=== PATIENT | male | born 1950 | race Caucasian/White ===

== ENCOUNTER 2016-03-08 18:59 | Emergency (ER) | payer MEDICARE, MEDICAID ==
[~2016-03-08] VITALS: Ht 167.6 cm; Wt 70.3 kg
[2016-03-08 19:18] VITALS: BP 128/62
--- NOTE | 2016-03-08 20:10 | Emergency Room Report ---
History of Present Illness General Chief Complaint: Skin Rash/Abscess Source: Patient (Georgina Mejia) Present Illness HPI 65 YO Presents to the ED c/o itching rash x over 2 weeks. Pt. denies recent travel. pt. states he had meningitis 6 months ago. Pt states rash began on left arm and spread to the axilla and abdomen in addition to up the right arm. pt. denies lower body involvement. Pt states itching is the most appreciable symptom. denies new medications , lotions, or detergents. pt. denies household members with similar symptoms by does report rash began shortly after leaving [facility] facility. Pt. also reports continued Lower extremity edema. Patient was evaluated at [facility] 20 days ago and had ultrasound performed which was negative however patient states he continues to have intermittent swelling of the lower extremities. Patient states he is primarily wheelchair-bound and does not ambulate regularly ever since he had meningitis. Patient states swelling is worse at the end of the day it and usually he is asymptomatic in the mornings upon awakening. Denies pain, erythema or calf aches. Pt denies N/V /F/C , neck stiffness, leg pain, claudication. (Georgina Mejia) Allergies: Coded Allergies: No Known Allergies (Unverified , 03/08/16) Patient History Past Medical History: see triage record Past Surgical History: none Pertinent Family History: none Immunizations: UTD Reviewed Nursing Documentation: PMH: Agreed, PSxH: Agreed (Georgina Mejia) Nursing Documentation-PMH Past Medical History: No Stated History (Georgina Mejia) Review of Systems All Other Systems: negative except mentioned in HPI (Georgina Mejia) Physical Exam Vital Signs Date Time Temp Pulse Resp B/P Pulse Ox O2 Delivery O2 Flow Rate FiO2 03/08/16 19:14 98.4 90 14 113/76 99 Room Air Sp02 EP Interpretation: reviewed, normal General Appearance: no apparent distress, alert, GCS 15, non-toxic Head: normocephalic, atraumatic Eyes: bilateral eye PERRL, bilateral eye normal inspection ENT: hearing grossly normal, normal pharynx, no angioedema, normal voice Neck: full range of motion, no meningismus, no bony tend, supple/symm/no masses Respiratory: chest non-tender, lungs clear, normal breath sounds, no rhonchi, no respiratory distress, no retraction, no accessory muscle use, no wheezing, speaking full sentences Cardiovascular #1: regular rate, rhythm, edema - bilateral LE 1+ non-pitting edema, no erythema, no pain, negative solange's Cardiovascular #2: 2+ radial (R), 2+ radial (L), 1+ dorsalis pedis (R), 1+ dorsalis pedis (L) Gastrointestinal: non tender, soft, no guarding, no rebound, other - rash: linear vesicular lesions, that do cross the midline, significant excoriations noted. Rectal: deferred Genitourinary: normal inspection, no CVA tenderness Musculoskeletal: back normal, gait/station normal, normal range of motion, non- tender, no calf tenderness Neurologic: alert, oriented x3, responsive, motor strength/tone normal, sensory intact, speech normal Psychiatric: judgement/insight normal, memory normal, mood/affect normal, no suicidal/homicidal ideation Skin: normal color, no rash, warm/dry, well hydrated, rash - rash: linear vesicular lesions, that do cross the midline, significant excoriations noted. one lesionis open and scabbed very mild crusting noted, no increased temperature to palpation. multiple linear arrangements on the torso mostly under the axilla, and the wrists going up the arms, few lesions noted dorsally on the hands between the finger webs, no palmar involvement, lesions are mainly on the left side, most suspicious for scabies. Lymphatic: no adenopathy (Georgina Mejia P.A.) Medical Decision Making PA Attestation Dr. reyes is my supervising Physician whom patient management has been discussed with. (Georgina Mejia P.A.) Medicare Attestation The history of Rafa Goodrich has been reviewed and management options for him have been examined and discussed by Juancarlos Smith. I have personally examined and interviewed the patient. (JUANCARLOS SMITH M.D.) Diagnostic Impression: Primary Impression: Scabies Additional Impression: Rash and other nonspecific skin eruption ER Course Pt. presents to the ED c/o rash on UE's and torso x over 2 weeks, in addition to continued intermittent lower extremity edema worse at the end of the day and asymptomatic in the mornings. Ddx considered but are not limited to cellulitis, scabies, shingles, varicella, dermatitis, urticaria, eczema, tinea, DVT, PAD, dependent edema. Vital signs: are WNL, pt. is afebrile H&PE are most consistent with possible scabies infestation due to linear appearance of lesions on torso, axilla and arm, as well as dependent edema. HPI and PE do not suggest high suspicion of DVT. especially since pt. was recently evaluated and had negative study. pt. provided US report from [facility]. ORDERS: none required at this time, the diagnosis is clinical ED INTERVENTIONS: -50mg Benadryl -40mg Prednisone -bacitracin applied to lesion on left side of torso. -d/w pt to follow up with a PCP who may place him on diuretic medications that he would need to be titrated to him personally. DISCHARGE: At this time pt. is stable for d/c to home. Will provide printed patient care instructions, and any necessary prescriptions. Care plan and follow up instructions have been discussed with the patient prior to discharge. (Georgina Mejia) Last Vital Signs Date Time Temp Pulse Resp B/P Pulse Ox O2 Delivery O2 Flow Rate FiO2 03/08/16 19:18 98.1 68 14 128/62 99 Room Air (Georgina Mejia) Disposition: HOME, SELF-CARE Condition: Stable Scripts Bacitracin Zinc/Polymyx B Sulf (HM DOUBLE ANTIBIOTIC OINTMENT) 28.4 Gm Oint...g. 1 APPLIC TP BID, #28.4 GM Prov: Georgina Mejia 03/08/16 Prednisone* (PREDNISONE*) 20 Mg Tablet 40 MG ORAL DAILY for 5 Days, TAB Prov: Georgina Mejia 03/08/16 Diphenhydramine Hcl* (BENADRYL*) 25 Mg Capsule 25 MG ORAL Q6H Y for Itching, #30 CAP take 1 or 2 capsules every 6 hours for itching as needed. Prov: Georgina Mejia 03/08/16 Permethrin* (ELIMITE*) 60 Gm Cream..g. 1 APPLIC TOPIC ONCE, #60 GM 2 Refills Apply cream from head to toe; leave on for 8-14 hours before washing off with water; may reapply in 1 week if live mites appear. Prov: Georgina Mejia 03/08/16 Referrals: NON PHYSICIAN (PCP) Patient Instructions: Edema, Pruritus, Scabies, Pediatric Additional Instructions: Take medications as directed. Follow up with PCP in 3-5 days Return sooner to ED if new symptoms occur, or current symptoms become worse. Do not drink alcohol, drive, or operate heavy machinery while taking benadryl as this may cause drowsiness. Georgina Mejia Mar 08, 2016 20:10 JUANCARLOS SMITH M.D. Mar 15, 2016 06:47
[2016-03-08] MEDS ORDERED: PERMETHRIN60 GM TOPIC (20:12)
[2016-03-08] MEDS ORDERED: PREDNISONE20 MG ORAL (20:12)
[2016-03-08] MEDS ORDERED: BENADRYL25 MG ORAL (20:12)
[2016-03-08] MEDS ORDERED: HM DOUBLE ANT28.4 G1 TP (20:13)
[2016-03-08] MEDS ORDERED: PredniSONE 20mg tab ORAL ONE (20:15)
[2016-03-08] MEDS ORDERED: Bacitracin Oint UD TOPIC ONE (20:15)
[2016-03-08 20:32] VITALS: BP 122/60
== END 2016-03-08 20:32 | disposition home or self-care (01) ==
LOC: EMR 19:23
DX: B86 Scabies (principal)
CPT/HCPCS: 99282

== ENCOUNTER 2017-07-21 15:05 | Inpatient (IN) | payer MEDICARE, OTHER ==
[~2017-07-21] VITALS: Ht 167.6 cm; Wt 77.1 kg
[~2017-07-21 15:05] MED LIST: BENADRYL25 MG ORAL; HM DOUBLE ANT28.4 G1 TP; PERMETHRIN60 GM TOPIC; PREDNISONE20 MG ORAL
[2017-07-21] MEDS ORDERED: NKM (15:12)
[2017-07-21 15:20] VITALS: BP 106/64
[2017-07-21 16:24] LABS: ANION GAP 7 mmol/L (5-15); BLOOD UREA NITROGEN 15 mg/dL (7-18); CALCIUM 8.7 MG/DL (8.5-10.1); CARBON DIOXIDE 28 MMOL/L (21-32); CHLORIDE 103 MMOL/L (98-107); CREATININE 0.6 MG/DL (0.55-1.30); SODIUM 138 MMOL/L (136-145)
[2017-07-21 16:37] LABS: ALANINE AMINOTRANSFERASE 29 U/L (12-78); ALBUMIN 2.9 G/DL (3.4-5.0); ALBUMIN/GLOBULIN RATIO 0.7 (1.0-2.7); ALKALINE PHOSPHATASE 53 U/L (46-116); ASPARTATE AMINO TRANSFERASE 20 U/L (15-37); BILIRUBIN,TOTAL 0.2 MG/DL (0.2-1.0)
--- NOTE | 2017-07-21 16:37 | Emergency Room Report ---
History of Present Illness General Chief Complaint: Generalized Weakness Source: Patient Present Illness HPI Patient is a 66-year-old male who presented after increased generalized weakness. The patient had recent interventional radiology artery coiling of a duodenal lesion less than 2 weeks ago. Patient denied recent fever. He reported having a decreased exercise tolerance as well as generalized weakness. Patient had recent blood draw with hemoglobin greater than 7 prior to angiographic procedure. The patient denied any hematemesis or grossly bloody stools. He states he's had previous upper GI as well as the colonoscopy. Patient was noted to have previous history of colon cancer and had previous surgery for colon resection with primary anastomosis. Allergies: Coded Allergies: No Known Allergies (Unverified , 03/08/16) Patient History Past Medical History: see triage record Reviewed Nursing Documentation: PMH: Agreed; PSxH: Agreed Nursing Documentation-PMH Hx Cancer: Yes - colon CA. 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 Review of Systems All Other Systems: negative except mentioned in HPI Physical Exam Vital Signs Date Time Temp Pulse Resp B/P (MAP) Pulse Ox O2 Delivery O2 Flow Rate FiO2 07/21/17 15:07 98.4 90 18 106/64 99 Room Air 98.4 Sp02 EP Interpretation: reviewed, normal General Appearance: normal inspection, well appearing, no apparent distress, alert, GCS 15 Head: atraumatic Eyes: bilateral eye conjunctivae pale ENT: normal ENT inspection, hearing grossly normal, normal voice Neck: normal inspection, full range of motion, supple, no bony tend Respiratory: normal inspection, lungs clear, normal breath sounds, no respiratory distress, no retraction, no wheezing Cardiovascular #1: regular rate, rhythm, no edema Gastrointestinal: normal inspection, normal bowel sounds, non tender, soft, no guarding, no hernia Rectal: heme positive stool - brown stool Genitourinary: no CVA tenderness Musculoskeletal: normal inspection, back normal, normal range of motion Neurologic: normal inspection, alert, oriented x3, responsive, 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 Differential diagnosis included was not limited to anemia, urinary tract infection, electrolyte abnormality, hypothyroidism, myocardial infarction, myasthenia gravis, dehydration, among others. Because of complexity of patient's case laboratory testing and imaging studies were ordered. The patient was noted to have the pale conjunctiva as well as oral mucosa. The patient stated he had previously had hemoglobin as low as 6.3. Labs Test 07/21/17 16:02 White Blood Count 8.1 K/UL (4.8-10.8) Red Blood Count 3.00 M/UL (4.70-6.10) Hemoglobin 6.7 G/DL (14.2-18.0) Hematocrit 23.0 % (42.0-52.0) Mean Corpuscular Volume 77 FL (80-99) Mean Corpuscular Hemoglobin 22.2 PG (27.0-31.0) Mean Corpuscular Hemoglobin Concent 29.0 G/DL (32.0-36.0) Red Cell Distribution Width 16.2 % (11.6-14.8) Platelet Count 349 K/UL (150-450) Mean Platelet Volume 7.0 FL (6.5-10.1) Neutrophils (%) (Auto) % (45.0-75.0) Lymphocytes (%) (Auto) % (20.0-45.0) Monocytes (%) (Auto) % (1.0-10.0) Eosinophils (%) (Auto) % (0.0-3.0) Basophils (%) (Auto) % (0.0-2.0) Prothrombin Time 10.4 SEC (9.30-11.50) Prothromb Time International Ratio 1.0 (0.9-1.1) Activated Partial Thromboplast Time 25 SEC (23-33) Sodium Level 138 MMOL/L (136-145) Potassium Level 4.0 MMOL/L (3.5-5.1) Chloride Level 103 MMOL/L (98-107) Carbon Dioxide Level 28 MMOL/L (21-32) Anion Gap 7 mmol/L (5-15) Blood Urea Nitrogen 15 mg/dL (7-18) Creatinine 0.6 MG/DL (0.55-1.30) Estimat Glomerular Filtration Rate > 60 mL/min (>60) Glucose Level 97 MG/DL (74-106) Calcium Level 8.7 MG/DL (8.5-10.1) Total Bilirubin 0.2 MG/DL (0.2-1.0) Aspartate Amino Transf (AST/SGOT) 20 U/L (15-37) Alanine Aminotransferase (ALT/SGPT) 29 U/L (12-78) Alkaline Phosphatase 53 U/L (46-116) Troponin I 0.000 ng/mL (0.000-0.056) Pro-B-Type Natriuretic Peptide 82 pg/mL (0-125) Total Protein 6.9 G/DL (6.4-8.2) Albumin 2.9 G/DL (3.4-5.0) Globulin 4.0 g/dL Albumin/Globulin Ratio 0.7 (1.0-2.7) Thyroid Stimulating Hormone (TSH) 0.869 uiU/mL (0.358-3.740) EKG Diagnostic Results Rate: normal Rhythm: NSR ST Segments: no acute changes Rhythm Strip Diag. Results EP Interpretation: yes Rhythm: NSR, no PVC's, no ectopy Last Vital Signs Date Time Temp Pulse Resp B/P (MAP) Pulse Ox O2 Delivery O2 Flow Rate FiO2 07/21/17 15:20 98.4 81 18 106/64 99 Room Air 98.4 Status: unchanged Disposition: ADMITTED INPATIENT Condition: Serious Referrals: SANJU WAKEFIELD MD (PCP) Remington Duong MD July 21, 2017 16:37
[2017-07-21 16:49] LABS: MEAN CORPUSCULAR VOLUME 77 FL (80-99); PLATELET COUNT 349 K/UL (150-450); RED CELL DISTRIBUTION WIDTH 16.2 % (11.6-14.8); WHITE BLOOD COUNT 8.1 K/UL (4.8-10.8)
[2017-07-21 16:55] LABS: HEMOGLOBIN 6.7 G/DL (14.2-18.0)
[2017-07-21 18:35] VITALS: BP 123/65
[2017-07-21 18:41] LABS: APPEARANCE,URINE CLEAR; BILIRUBIN, URINE NEGATIVE (NEGATIVE); COLOR,URINE PALE YELLOW; GLUCOSE, URINE (UA) NEGATIVE (NEGATIVE); KETONES,URINE NEGATIVE (NEGATIVE); LEUKOCYTE ESTERASE ,URINE 1+ (NEGATIVE); NITRITE,URINE NEGATIVE (NEGATIVE); PH,URINE 9 (4.5-8.0); PROTEIN,URINE 1+ (NEGATIVE); UROBILINOGEN,URINE NORMAL MG/DL (0.0-1.0)
[2017-07-21 20:33] VITALS: BP 93/55
[2017-07-22 00:22] VITALS: BP 146/85
[2017-07-22 01:07] VITALS: BP 102/53
[2017-07-22 03:28] VITALS: BP 102/56
[2017-07-22 08:03] LABS: BASOPHILS % (AUTO) 1.6 % (0.0-2.0); EOSINOPHILS % (AUTO) 11.3 % (0.0-3.0); HEMATOCRIT 29.2 % (42.0-52.0); HEMOGLOBIN 9.1 G/DL (14.2-18.0); LYMPHOCYTES % (AUTO) 10.8 % (20.0-45.0); MEAN CORPUSCULAR VOLUME 79 FL (80-99); MONOCYTES % (AUTO) 7.6 % (1.0-10.0); NEUTROPHILS % (AUTO) 68.8 % (45.0-75.0); PLATELET COUNT 327 K/UL (150-450); RED BLOOD COUNT 3.68 M/UL (4.70-6.10); RED CELL DISTRIBUTION WIDTH 16.5 % (11.6-14.8); WHITE BLOOD COUNT 9.8 K/UL (4.8-10.8)
[2017-07-22 08:24] LABS: ALANINE AMINOTRANSFERASE 28 U/L (12-78); ALBUMIN/GLOBULIN RATIO 0.7 (1.0-2.7); ALKALINE PHOSPHATASE 55 U/L (46-116); ANION GAP 9 mmol/L (5-15); ASPARTATE AMINO TRANSFERASE 22 U/L (15-37); BILIRUBIN,TOTAL 0.6 MG/DL (0.2-1.0); BLOOD UREA NITROGEN 18 mg/dL (7-18); CARBON DIOXIDE 24 MMOL/L (21-32); CHLORIDE 106 MMOL/L (98-107); CREATININE 0.5 MG/DL (0.55-1.30); POTASSIUM 4.1 MMOL/L (3.5-5.1); SODIUM 139 MMOL/L (136-145)
[2017-07-22 09:00] VITALS: BP 155/66
--- NOTE | 2017-07-22 11:50 | Consultation ---
History of Present Illness General Date patient seen: July 22, 2017 Chief Complaint: Generalized Weakness Present Illness HPI 66-year-old male who presented after increased generalized weakness. The patient had recent interventional radiology artery coiling of a duodenal lesion less than 2 weeks ago. the pt was anxious and wanted to leave. the pt slightly irritable and stated that he wanted to leave before seeing any doctors. he was anxious however didn't endorse depressive sxs. Denied any weakness. Allergies: Coded Allergies: No Known Allergies (Unverified , 03/08/16) Medication History Scheduled Bacitracin Zinc/Polymyx B Sulf (Hm Double Antibiotic Ointment), 1 APPLIC TP BID No Known Medications* (NKM - No Known Medications*), 0 ., (Reported) Permethrin* (Elimite*), 1 APPLIC TOPIC ONCE Prednisone* (Prednisone*), 40 MG ORAL DAILY Scheduled PRN Diphenhydramine Hcl* (Benadryl*), 25 MG ORAL Q6H PRN for Itching Patient History Limited by: medical condition History Provided By: Patient, PMD Healthcare decision maker N Resuscitation status Full Code Advanced Directive on File No Past Medical/Surgical History Past Medical/Surgical History: (1) Episode of generalized weakness (2) Symptomatic anemia Review of Systems Psychiatric: Reports: anxiety, emotional problems Physical Exam General Appearance: WD/WN, no apparent distress, alert Neurologic: oriented x 3, responsive, depressed affect Last 24 Hour Vital Signs Date Time Temp Pulse Resp B/P (MAP) Pulse Ox O2 Delivery O2 Flow Rate FiO2 07/22/17 09:00 98.3 78 20 155/66 96 Room Air 98.3 07/22/17 03:28 98.8 74 102/56 98.8 07/22/17 01:07 99.6 79 102/53 99.6 07/22/17 00:22 99.1 92 20 146/85 94 99.1 07/22/17 00:09 99.1 07/21/17 23:10 100.2 07/21/17 20:33 99.0 85 18 93/55 96 99.0 07/21/17 19:07 98.0 99 22 123/65 100 Room Air 98.0 07/21/17 18:35 98.0 99 22 123/65 100 Room Air 98.0 07/21/17 15:20 98.4 81 18 106/64 99 Room Air 98.4 07/21/17 15:07 98.4 90 18 106/64 99 Room Air 98.4 Intake and Output 07/21/17 07/22/17 19:00 07:00 Intake Total 725 ml Output Total 0 ml Balance 0 ml 725 ml Intake IV Total 225 ml Blood Product 500 ml Output Urine Total 0 ml Laboratory Tests Test 07/21/17 16:02 07/21/17 18:24 07/22/17 07:15 White Blood Count 8.1 K/UL (4.8-10.8) 9.8 K/UL (4.8-10.8) Red Blood Count 3.00 M/UL (4.70-6.10) L 3.68 M/UL (4.70-6.10) L Hemoglobin 6.7 G/DL (14.2-18.0) *L 9.1 G/DL (14.2-18.0) #L Hematocrit 23.0 % (42.0-52.0) L 29.2 % (42.0-52.0) L Mean Corpuscular Volume 77 FL (80-99) L 79 FL (80-99) L Mean Corpuscular Hemoglobin 22.2 PG (27.0-31.0) L 24.6 PG (27.0-31.0) L Mean Corpuscular Hemoglobin Concent 29.0 G/DL (32.0-36.0) L 31.0 G/DL (32.0-36.0) L Red Cell Distribution Width 16.2 % (11.6-14.8) H 16.5 % (11.6-14.8) H Platelet Count 349 K/UL (150-450) 327 K/UL (150-450) Mean Platelet Volume 7.0 FL (6.5-10.1) 6.3 FL (6.5-10.1) L Neutrophils (%) (Auto) % (45.0-75.0) 68.8 % (45.0-75.0) Lymphocytes (%) (Auto) % (20.0-45.0) 10.8 % (20.0-45.0) L Monocytes (%) (Auto) % (1.0-10.0) 7.6 % (1.0-10.0) Eosinophils (%) (Auto) % (0.0-3.0) 11.3 % (0.0-3.0) H Basophils (%) (Auto) % (0.0-2.0) 1.6 % (0.0-2.0) Differential Total Cells Counted 100 Neutrophils % (Manual) 64 % (45-75) Lymphocytes % (Manual) 15 % (20-45) L Monocytes % (Manual) 4 % (1-10) Eosinophils % (Manual) 14 % (0-3) H Basophils % (Manual) 1 % (0-2) Band Neutrophils 2 % (0-8) Platelet Estimate Adequate Platelet Morphology Normal Polychromasia 1+ Hypochromasia 3+ Anisocytosis 2+ Microcytosis 2+ Prothrombin Time 10.4 SEC (9.30-11.50) Prothromb Time International Ratio 1.0 (0.9-1.1) Activated Partial Thromboplast Time 25 SEC (23-33) Sodium Level 138 MMOL/L (136-145) 139 MMOL/L (136-145) Potassium Level 4.0 MMOL/L (3.5-5.1) 4.1 MMOL/L (3.5-5.1) Chloride Level 103 MMOL/L (98-107) 106 MMOL/L (98-107) Carbon Dioxide Level 28 MMOL/L (21-32) 24 MMOL/L (21-32) Anion Gap 7 mmol/L (5-15) 9 mmol/L (5-15) Blood Urea Nitrogen 15 mg/dL (7-18) 18 mg/dL (7-18) Creatinine 0.6 MG/DL (0.55-1.30) 0.5 MG/DL (0.55-1.30) L Estimat Glomerular Filtration Rate > 60 mL/min (>60) > 60 mL/min (>60) Glucose Level 97 MG/DL (74-106) 100 MG/DL (74-106) Calcium Level 8.7 MG/DL (8.5-10.1) 9.0 MG/DL (8.5-10.1) Total Bilirubin 0.2 MG/DL (0.2-1.0) 0.6 MG/DL (0.2-1.0) Aspartate Amino Transf (AST/SGOT) 20 U/L (15-37) 22 U/L (15-37) Alanine Aminotransferase (ALT/SGPT) 29 U/L (12-78) 28 U/L (12-78) Alkaline Phosphatase 53 U/L (46-116) 55 U/L (46-116) Troponin I 0.000 ng/mL (0.000-0.056) Pro-B-Type Natriuretic Peptide 82 pg/mL (0-125) Total Protein 6.9 G/DL (6.4-8.2) 7.1 G/DL (6.4-8.2) Albumin 2.9 G/DL (3.4-5.0) L 3.0 G/DL (3.4-5.0) L Globulin 4.0 g/dL 4.1 g/dL Albumin/Globulin Ratio 0.7 (1.0-2.7) L 0.7 (1.0-2.7) L Thyroid Stimulating Hormone (TSH) 0.869 uiU/mL (0.358-3.740) Urine Color Pale yellow Urine Appearance Clear Urine pH 9 (4.5-8.0) Urine Specific [place] 1.015 (1.005-1.035) Urine Protein 1+ (NEGATIVE) H Urine Glucose (UA) Negative (NEGATIVE) Urine Ketones Negative (NEGATIVE) Urine Occult Blood Negative (NEGATIVE) Urine Nitrite Negative (NEGATIVE) Urine Bilirubin Negative (NEGATIVE) Urine Urobilinogen Normal MG/DL (0.0-1.0) Urine Leukocyte Esterase 1+ (NEGATIVE) H Urine RBC 0-2 /HPF (0 - 0) H Urine WBC 2-4 /HPF (0 - 0) Urine Squamous Epithelial Cells None /LPF (NONE/OCC) Urine Bacteria Few /HPF (NONE) Height (Feet): 5 Height (Inches): 6.00 Weight (Pounds): 170 Medications Current Medications Medications (Trade) Dose Ordered Sig/Arden Route PRN Reason Start Time Stop Time Status Last Admin Dose Admin Acetaminophen (Tylenol) 650 mg Q6H PRN ORAL Mild Pain/Temp > 100.5 07/21/17 20:45 08/20/17 20:44 07/21/17 23:10 Diphenhydramine HCl (Benadryl) 25 mg Q6H PRN ORAL Itching 07/21/17 20:45 08/20/17 20:44 Sodium Chloride 1,000 ml @ 75 mls/hr [id number] IV 07/21/17 21:00 08/20/17 20:59 07/21/17 23:12 Assessment/Plan Status: stable Assessment/Plan Anxiety d/o no meds pt must see primary before he leaves spoke with the RN Yeny Rice M.D. July 22, 2017 11:50
[2017-07-22 12:00] VITALS: BP 121/66
[2017-07-22] MEDS ORDERED: FERROUS SULFAT325 M2 ORAL (12:28)
[2017-07-22] MEDS ORDERED: Tubing IV Blood Pump IV ONE (13:16)
--- NOTE | 2017-07-22 14:24 | Cardiology Report ---
APPROVED REPORT EKG Measurement Heart [id number] Normal sinus rhythm Left axis deviation Abnormal ECG
--- NOTE | 2017-07-22 22:42 | History and Physical ---
History of Present Illness General Date patient seen: July 22, 2017 Time patient seen: 11:00 Reason for Hospitalization: Generalized Weakness Present Illness HPI Patient is a 66-year-old male who presented after increased generalized weakness. The patient had recent interventional radiology artery coiling of a duodenal lesion less than 2 weeks ago. Patient denied recent fever. He reported having a decreased exercise tolerance as well as generalized weakness. Patient had recent blood draw with hemoglobin greater than 7 prior to angiographic procedure. The patient denied any hematemesis or grossly bloody stools. He states he's had previous upper GI as well as the colonoscopy. Patient was noted to have previous history of colon cancer and had previous surgery for colon resection with primary anastomosis. Patient was transfused 2 units pRBC and hemoglobin went from 6.7 to 9.1. Patient denies any hematechezia or hematemesis. Denies chest pain, sob, n/v. Allergies: Coded Allergies: No Known Allergies (Unverified , 03/08/16) Medication History Scheduled Bacitracin Zinc/Polymyx B Sulf (Hm Double Antibiotic Ointment), 1 APPLIC TP BID Ferrous Sulfate (Ferrous Sulfate), 325 MG ORAL TID No Known Medications* (NKM - No Known Medications*), 0 ., (Reported) Scheduled PRN Diphenhydramine Hcl* (Benadryl*), 25 MG ORAL Q6H PRN for Itching Discontinued Medications Permethrin* (Elimite*), 1 APPLIC TOPIC ONCE Discontinued Reason: Pt stopped taking med Prednisone* (Prednisone*), 40 MG ORAL DAILY Discontinued Reason: Pt stopped taking med Patient History Healthcare decision maker N Resuscitation status Full Code Advanced Directive on File No Review of Systems All Other Systems: negative except mentioned in HPI Physical Exam General Appearance: no apparent distress, alert HEENT: normocephalic, atraumatic Neck: non-tender, normal alignment, supple Respiratory/Chest: chest wall non-tender, lungs clear, normal breath sounds Abdomen: normal bowel sounds, non tender, soft Extremities: normal range of motion, non-tender Skin Exam: warm/dry, other - pale 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, no motor/sensory deficits, alert, oriented x 3 Last 24 Hour Vital Signs Date Time Temp Pulse Resp B/P (MAP) Pulse Ox O2 Delivery O2 Flow Rate FiO2 07/22/17 12:00 98.0 78 20 121/66 97 Room Air 98.0 07/22/17 09:00 98.3 78 20 155/66 96 Room Air 98.3 07/22/17 03:28 98.8 74 102/56 98.8 07/22/17 01:07 99.6 79 102/53 99.6 07/22/17 00:22 99.1 92 20 146/85 94 99.1 07/22/17 00:09 99.1 07/21/17 23:10 100.2 Intake and Output 07/21/17 07/22/17 19:00 07:00 Intake Total 725 ml Output Total 0 ml Balance 0 ml 725 ml Intake IV Total 225 ml Blood Product 500 ml Output Urine Total 0 ml Laboratory Tests Test 07/22/17 07:15 White Blood Count 9.8 K/UL (4.8-10.8) Red Blood Count 3.68 M/UL (4.70-6.10) L Hemoglobin 9.1 G/DL (14.2-18.0) #L Hematocrit 29.2 % (42.0-52.0) L Mean Corpuscular Volume 79 FL (80-99) L Mean Corpuscular Hemoglobin 24.6 PG (27.0-31.0) L Mean Corpuscular Hemoglobin Concent 31.0 G/DL (32.0-36.0) L Red Cell Distribution Width 16.5 % (11.6-14.8) H Platelet Count 327 K/UL (150-450) Mean Platelet Volume 6.3 FL (6.5-10.1) L Neutrophils (%) (Auto) 68.8 % (45.0-75.0) Lymphocytes (%) (Auto) 10.8 % (20.0-45.0) L Monocytes (%) (Auto) 7.6 % (1.0-10.0) Eosinophils (%) (Auto) 11.3 % (0.0-3.0) H Basophils (%) (Auto) 1.6 % (0.0-2.0) Sodium Level 139 MMOL/L (136-145) Potassium Level 4.1 MMOL/L (3.5-5.1) Chloride Level 106 MMOL/L (98-107) Carbon Dioxide Level 24 MMOL/L (21-32) Anion Gap 9 mmol/L (5-15) Blood Urea Nitrogen 18 mg/dL (7-18) Creatinine 0.5 MG/DL (0.55-1.30) L Estimat Glomerular Filtration Rate > 60 mL/min (>60) Glucose Level 100 MG/DL (74-106) Calcium Level 9.0 MG/DL (8.5-10.1) Total Bilirubin 0.6 MG/DL (0.2-1.0) Aspartate Amino Transf (AST/SGOT) 22 U/L (15-37) Alanine Aminotransferase (ALT/SGPT) 28 U/L (12-78) Alkaline Phosphatase 55 U/L (46-116) Total Protein 7.1 G/DL (6.4-8.2) Albumin 3.0 G/DL (3.4-5.0) L Globulin 4.1 g/dL Albumin/Globulin Ratio 0.7 (1.0-2.7) L Height (Feet): 5 Height (Inches): 6.00 Weight (Pounds): 170 Assessment/Plan Problem List: (1) S/P colon resection ICD Codes: Z90.49 - Acquired absence of other specified parts of digestive tract SNOMED: 50590234, 50877589, 33859145, [id number] (2) H/O malignant neoplasm of colon ICD Codes: Z85.038 - Personal history of other malignant neoplasm of large intestine SNOMED: 923983932 (3) Acute blood loss anemia ICD Codes: D62 - Acute posthemorrhagic anemia SNOMED: 890870425 Status: stable, progressing Assessment/Plan Admit to obs transfuse 2 units pRBC monitor H/H check stool OB f/u with outpatient GI tomorrow for further evaluation given recent surgical clipping done while doing an EgD DVT ppx: SCD Full code I spent a total of 71 minutes with more than 50% of this patient's care spent on care and coordination of the patient. Case d/w patient, nursing staff, SW/CM. Marifer Monroy NP July 22, 2017 22:42
--- NOTE | 2017-07-23 13:18 | Discharge Summary ---
Discharge Summary Discharge Summary _ DATE OF ADMISSION: 07/21/2017 DATE OF DISCHARGE: 07/22/2017 REASON FOR ADMISSION: 66 years old male with past medical history significant for colon cancer, status post colon resection with primary anastomosis, presented to emergency department with a complaint of generalized weakness. Patient had less than 2 weeks ago interventional radiology procedure with artery coiling due to duodenal lesion. Patient denied fever or chills .He noted decreased exercise tolerance and generalized weakness. Patient had recent blood draw done with hemoglobin being greater than 7, which was done prior to his angiographic procedure. Patient denied hematemesis. Patient denied grossly bloody stool. Patient had in the past upper GI and colonoscopy. Upon evaluation in emergency department, vital signs are stable; no leukocytosis . Hemoglobin 6.7 hematocrit 23.0. Electrolytes , renal parameters and LFT were all within normal limits. Troponin was negative. Pro BNP 82. TSH was within normal limits . EKG revealedECG revealed normal sinus rhythm, no acute ischemic changes. Patient was admitted with diagnosis of acute blood loss anemia , episode of generalized weakness ,. history of malignant colon neoplasm , status post colon resection. CONSULTANTS: psychiatrist [facility] COURSE: Patient admitted to telemetry floor. Patient undergone transfusion of 2 units of packed red blood cells. Hemoglobin up to 9.1 from initial 6.7, hematocrit 29.2 from initial 23.0. Supplemental oxygen provided as needed to keep pulse oximetry above 92%. Patient was on the IV hydration. Symptomatic management provided. DVT prophylaxis with SCD instituted. Psychiatrist seen and evaluated patient, and diagnosed patient with anxiety disorder. No medication needed at this time, supportive therapy provided. Patient felt better after blood transfusion. Patient was stable for discharge home . Patient was recommended to follow up with outpatient GI specialist in the morning for further evaluation, given recent surgical clipping done while doing EGD. Due to rapid and unexpected improvement in patient's condition, the patient was discharged in one day. FINAL DIAGNOSES: Acute blood loss anemia requiring blood transfusion History of malignant colon neoplasm Status post colon resection Anxiety disorder DISCHARGE MEDICATIONS: See Medication Reconciliation list. DISCHARGE INSTRUCTIONS: Patient was discharged home. Patient to follow-up with outpatient GI specialist in the morning for further evaluation, given recent surgical clipping done while doing EGD. I have been assigned to dictate discharge summary for this account. I was not involved in the patient's management. Ryanne Alex NP July 23, 2017 13:18
== END 2017-07-22 13:17 | disposition home or self-care (01) | DRG 812 ==
LOC: EMR 15:30 → 4E 17:19 → OBSVTOIN 17:19 → EDBEDREQ 17:52 → 4E 22:26
PROC: 30233N1 Transfusion of Nonautologous Red Blood Cells into Peripheral Vein, Percutaneous Approach (ICD-10-PCS; principal; 2017-07-21)
DX: D62 Acute posthemorrhagic anemia (principal); Z85.038 Personal history of other malignant neoplasm of large intestine; Z90.49 Acquired absence of other specified parts of digestive tract; F41.9 Anxiety disorder, unspecified
CPT/HCPCS: 36415; 80053; 81001; 83880; 84443; 84484; 85007; 85025; 85610; 85730; 86850; 86900; 86901; 86920; 93005; 99285

== ENCOUNTER 2017-08-10 00:15 | Inpatient (IN) | payer MEDICARE, OTHER ==
[~2017-08-10] VITALS: Ht 167.6 cm; Wt 70.8 kg
[~2017-08-10 00:15] MED LIST changes: +FERROUS SULFAT325 M2 ORAL; +NKM
[2017-08-10 00:35] VITALS: BP 107/68
[2017-08-10] MEDS ORDERED: Sodium Chloride 500ML 500 ML IV ONE (01:00)
[2017-08-10 01:26] LABS: HEMATOCRIT 26.2 % (42.0-52.0); HEMOGLOBIN 7.7 G/DL (14.2-18.0); MEAN CORPUSCULAR VOLUME 74 FL (80-99); PLATELET COUNT 478 K/UL (150-450); RED BLOOD COUNT 3.54 M/UL (4.70-6.10); RED CELL DISTRIBUTION WIDTH 17.5 % (11.6-14.8); WHITE BLOOD COUNT 8.1 K/UL (4.8-10.8)
[2017-08-10 01:35] LABS: ANION GAP 8 mmol/L (5-15); BLOOD UREA NITROGEN 14 mg/dL (7-18); CALCIUM 8.7 MG/DL (8.5-10.1); CARBON DIOXIDE 26 MMOL/L (21-32); CHLORIDE 105 MMOL/L (98-107); CREATININE 0.5 MG/DL (0.55-1.30); POTASSIUM 4.5 MMOL/L (3.5-5.1); SODIUM 139 MMOL/L (136-145)
[2017-08-10 01:40] LABS: ALANINE AMINOTRANSFERASE 34 U/L (12-78); ALBUMIN 3.1 G/DL (3.4-5.0); ALBUMIN/GLOBULIN RATIO 0.9 (1.0-2.7); ALKALINE PHOSPHATASE 55 U/L (46-116); ASPARTATE AMINO TRANSFERASE 24 U/L (15-37); BILIRUBIN,TOTAL 0.3 MG/DL (0.2-1.0)
[2017-08-10 02:30] VITALS: BP 96/58
[2017-08-10] MEDS ORDERED: Bupivacaine w/Epi 0.25% 30ml Vial INJ ONE (03:00)
--- NOTE | 2017-08-10 04:11 | Emergency Room Report ---
History of Present Illness General Chief Complaint: Generalized Weakness Source: Patient Present Illness HPI 66-year-old male presents ED complaining of weakness for the last few days. States he has history of duodenal ulcer and history of colon cancer status post colectomy. patient's at bedside states the patient appears pale. States that the last time he was here he was very anemic and required blood transfusion. Denies any hematemesis. Denies any blood in the stool. Denies any blood thinners. Denies any abdominal pain. No other aggravating relieving factors. Denies any other associated symptoms Allergies: Coded Allergies: No Known Allergies (Unverified , 03/08/16) Patient History Past Medical History: ulcer, other - colon cancer Pertinent Family History: none Social History: Denies: smoking, alcohol use, drug use Immunizations: UTD Reviewed Nursing Documentation: PMH: Agreed; PSxH: Agreed Nursing Documentation-PMH Past Medical History: No History, Except For Hx Cancer: Yes - Colon CA (Had partial colectomy in 2014) Hx Gastrointestinal Problems: Yes - Duodenal ulcer Hx Gu[place] Syndrome: Yes Review of Systems All Other Systems: negative except mentioned in HPI Physical Exam Vital Signs Date Time Temp Pulse Resp B/P (MAP) Pulse Ox O2 Delivery O2 Flow Rate FiO2 08/10/17 00:26 98.1 88 16 107/68 97 Room Air 98.1 Sp02 EP Interpretation: reviewed, normal General Appearance: no apparent distress, alert, GCS 15, non-toxic Head: normocephalic, atraumatic Eyes: bilateral eye normal inspection, bilateral eye PERRL ENT: hearing grossly normal, normal pharynx, no angioedema, normal voice Neck: full range of motion, supple/symm/no masses Respiratory: chest non-tender, lungs clear, normal breath sounds, speaking full sentences Cardiovascular #1: regular rate, rhythm, no edema Cardiovascular #2: 2+ carotid (R), 2+ carotid (L), 2+ radial (R), 2+ radial (L) , 2+ dorsalis pedis (R), 2+ dorsalis pedis (L) Gastrointestinal: normal bowel sounds, non tender, soft, non-distended, no guarding, no rebound Rectal: deferred Genitourinary: normal inspection, no CVA tenderness Musculoskeletal: back normal, gait/station normal, normal range of motion, non- tender Neurologic: alert, oriented x3, responsive, motor strength/tone normal, sensory intact, speech normal Psychiatric: judgement/insight normal, memory normal, mood/affect normal, no suicidal/homicidal ideation Reflexes: 3+ bicep (R), 3+ bicep (L), 3+ tricep (R), 3+ tricep (L), 3+ knee (R) , 3+ knee (L) Skin: no rash, warm/dry, well hydrated, pallor Lymphatic: no adenopathy Medical Decision Making Diagnostic Impression: Primary Impression: Acute blood loss anemia Additional Impressions: H/O malignant neoplasm of colon S/P colon resection Episode of generalized weakness ER Course Hospital Course 66-year-old male presents ED complaining of weakness, pale, history of duodenal ulcer Differential diagnoses include: UGIB, LGIB, anemia Clinical course Patient placed on stretcher. After initial history and physical I ordered labs , IVFs Labs- hemoglobin/hematocrit 7.6/26.2. Electrolytes okay, no leukocytosis 2 units PRBCs ordered. Discussed findings with patient. Patient will be admitted to Dr. Walters Diagnosis - acute blood loss anemia, h/o malignant neoplasm of colon, s/p colon resection, episode of generalized weakness Admitted to floor in serious condition Labs Test 08/10/17 01:15 White Blood Count 8.1 K/UL (4.8-10.8) Red Blood Count 3.54 M/UL (4.70-6.10) Hemoglobin 7.7 G/DL (14.2-18.0) Hematocrit 26.2 % (42.0-52.0) Mean Corpuscular Volume 74 FL (80-99) Mean Corpuscular Hemoglobin 21.8 PG (27.0-31.0) Mean Corpuscular Hemoglobin Concent 29.5 G/DL (32.0-36.0) Red Cell Distribution Width 17.5 % (11.6-14.8) Platelet Count 478 K/UL (150-450) Mean Platelet Volume 6.9 FL (6.5-10.1) Neutrophils (%) (Auto) % (45.0-75.0) Lymphocytes (%) (Auto) % (20.0-45.0) Monocytes (%) (Auto) % (1.0-10.0) Eosinophils (%) (Auto) % (0.0-3.0) Basophils (%) (Auto) % (0.0-2.0) Prothrombin Time 10.4 SEC (9.30-11.50) Prothromb Time International Ratio 1.0 (0.9-1.1) Activated Partial Thromboplast Time 25 SEC (23-33) Sodium Level 139 MMOL/L (136-145) Potassium Level 4.5 MMOL/L (3.5-5.1) Chloride Level 105 MMOL/L (98-107) Carbon Dioxide Level 26 MMOL/L (21-32) Anion Gap 8 mmol/L (5-15) Blood Urea Nitrogen 14 mg/dL (7-18) Creatinine 0.5 MG/DL (0.55-1.30) Estimat Glomerular Filtration Rate > 60 mL/min (>60) Glucose Level 125 MG/DL (74-106) Calcium Level 8.7 MG/DL (8.5-10.1) Total Bilirubin 0.3 MG/DL (0.2-1.0) Aspartate Amino Transf (AST/SGOT) 24 U/L (15-37) Alanine Aminotransferase (ALT/SGPT) 34 U/L (12-78) Alkaline Phosphatase 55 U/L (46-116) Total Protein 6.5 G/DL (6.4-8.2) Albumin 3.1 G/DL (3.4-5.0) Globulin 3.4 g/dL Albumin/Globulin Ratio 0.9 (1.0-2.7) Last Vital Signs Date Time Temp Pulse Resp B/P (MAP) Pulse Ox O2 Delivery O2 Flow Rate FiO2 08/10/17 00:35 98.1 16 107/68 97 Room Air 98.1 08/10/17 00:26 88 Status: improved Disposition: ADMITTED INPATIENT Condition: Serious Referrals: NOT CHOSEN IPA/,REFERRING (PCP) Juancarlos Simth MD Aug 10, 2017 04:11
[2017-08-10 05:30] VITALS: BP 98/53
[2017-08-10 05:45] VITALS: BP 91/53
--- NOTE | 2017-08-10 16:22 | History and Physical ---
History of Present Illness General Date patient seen: Aug 10, 2017 Time patient seen: 15:52 Reason for Hospitalization: Generalized Weakness Present Illness HPI Patient is a 66-year-old male with a PMH of colon CA s/p colon resection with anastomosis and anemia who presented for dizziness and pale-appearance. In the ED, patient was noted to have a Hgb of 7.7 and 2 units of pRBC was ordered. Patient states that he recently had an EgD 2 days prior with his GI, Dr. Turner, which showed a duodenal bleed. Patient states that it was not clipped at the time as it was a difficult procedure to do given multiple polyps in his colon. Patient was therefore scheduled for an EgD with clipping in 10 days. At this time, patient presents for pale-appearing, dizziness and weakness. Patient denies any hematechezia or hematemesis. Denies chest pain, sob, n/v. Of note, patient was recently admitted on 07/22/17 for similar symptoms and was found to have a Hgb of 6.7. Patient was admitted to obs and was transfused 2 units pRBC. Patient's repeat Hgb was 9.1 and patient was stable for discharge. Allergies: Coded Allergies: No Known Allergies (Unverified , 03/08/16) Medication History Scheduled Ferrous Sulfate (Ferrous Sulfate), 325 MG ORAL TID No Known Medications* (NKM - No Known Medications*), 0 ., (Reported) Discontinued Medications Bacitracin Zinc/Polymyx B Sulf (Hm Double Antibiotic Ointment), 1 APPLIC TP BID Discontinued Reason: Pt stopped taking med Diphenhydramine Hcl* (Benadryl*), 25 MG ORAL Q6H PRN for Itching Discontinued Reason: Pt stopped taking med Medications Narrative Active Scripts Medications Dose Route/Sig Max Daily Dose Days Date Category Ferrous Sulfate 325 Mg Tablet.dr 325 Mg ORAL TID 30 07/22/17 Rx NKM - No Known Medications* (No Known Medications*) . 0 . 07/21/17 Reported Patient History History Provided By: Patient, Medical Record Healthcare decision maker Resuscitation status Advanced Directive on File Review of Systems All Other Systems: negative except mentioned in HPI Physical Exam General Appearance: no apparent distress, alert HEENT: normocephalic, atraumatic Neck: non-tender, normal alignment, supple Respiratory/Chest: chest wall non-tender, lungs clear, normal breath sounds Cardiovascular/Chest: normal peripheral pulses, normal rate, regular rhythm Abdomen: normal bowel sounds, non tender, soft, other - surgical scar noted to suprapubic area Skin Exam: other - pale appearing Neurologic: film touch up inspector II-XII grossly normal, no motor/sensory deficits, alert, oriented x 3 Last 24 Hour Vital Signs Date Time Temp Pulse Resp B/P (MAP) Pulse Ox O2 Delivery O2 Flow Rate FiO2 08/10/17 06:59 98.2 74 16 98 Room Air 98.2 08/10/17 05:45 98.1 73 14 91/53 98 Room Air 98.1 08/10/17 05:45 73 14 91/53 98 Room Air 08/10/17 05:30 72 18 98/53 100 Room Air 08/10/17 02:30 78 20 96/58 98 Room Air 08/10/17 00:35 98.1 16 107/68 97 Room Air 98.1 08/10/17 00:26 98.1 88 16 107/68 97 Room Air 98.1 Intake and Output 08/09/17 08/10/17 19:00 07:00 Intake Total 0 ml Balance 0 ml Intake Oral 0 ml Laboratory Tests Test 08/10/17 01:15 White Blood Count 8.1 K/UL (4.8-10.8) Red Blood Count 3.54 M/UL (4.70-6.10) L Hemoglobin 7.7 G/DL (14.2-18.0) L Hematocrit 26.2 % (42.0-52.0) L Mean Corpuscular Volume 74 FL (80-99) L Mean Corpuscular Hemoglobin 21.8 PG (27.0-31.0) L Mean Corpuscular Hemoglobin Concent 29.5 G/DL (32.0-36.0) L Red Cell Distribution Width 17.5 % (11.6-14.8) H Platelet Count 478 K/UL (150-450) H Mean Platelet Volume 6.9 FL (6.5-10.1) Neutrophils (%) (Auto) % (45.0-75.0) Lymphocytes (%) (Auto) % (20.0-45.0) Monocytes (%) (Auto) % (1.0-10.0) Eosinophils (%) (Auto) % (0.0-3.0) Basophils (%) (Auto) % (0.0-2.0) Differential Total Cells Counted 100 Neutrophils % (Manual) 73 % (45-75) Lymphocytes % (Manual) 10 % (20-45) L Monocytes % (Manual) 9 % (1-10) Eosinophils % (Manual) 8 % (0-3) H Basophils % (Manual) 0 % (0-2) Band Neutrophils 0 % (0-8) Platelet Estimate Adequate Platelet Morphology Normal Prothrombin Time 10.4 SEC (9.30-11.50) Prothromb Time International Ratio 1.0 (0.9-1.1) Activated Partial Thromboplast Time 25 SEC (23-33) Sodium Level 139 MMOL/L (136-145) Potassium Level 4.5 MMOL/L (3.5-5.1) Chloride Level 105 MMOL/L (98-107) Carbon Dioxide Level 26 MMOL/L (21-32) Anion Gap 8 mmol/L (5-15) Blood Urea Nitrogen 14 mg/dL (7-18) Creatinine 0.5 MG/DL (0.55-1.30) L Estimat Glomerular Filtration Rate > 60 mL/min (>60) Glucose Level 125 MG/DL (74-106) H Calcium Level 8.7 MG/DL (8.5-10.1) Total Bilirubin 0.3 MG/DL (0.2-1.0) Aspartate Amino Transf (AST/SGOT) 24 U/L (15-37) Alanine Aminotransferase (ALT/SGPT) 34 U/L (12-78) Alkaline Phosphatase 55 U/L (46-116) Total Protein 6.5 G/DL (6.4-8.2) Albumin 3.1 G/DL (3.4-5.0) L Globulin 3.4 g/dL Albumin/Globulin Ratio 0.9 (1.0-2.7) L Height (Feet): 5 Height (Inches): 6.00 Weight (Pounds): 156 Medications Current Medications Medications (Trade) Dose Ordered Sig/Arden Route PRN Reason Start Time Stop Time Status Last Admin Dose Admin Ferrous Sulfate (Feosol) 325 mg THREE TIMES A DAY ORAL 08/10/17 10:00 09/09/17 09:59 08/10/17 09:31 Sodium Chloride 1,000 ml @ 75 mls/hr [id number] IV 08/10/17 10:00 09/09/17 09:59 Assessment/Plan Problem List: (1) Duodenal hemorrhage ICD Codes: K92.2 - Gastrointestinal hemorrhage, unspecified SNOMED: 82682744 (2) H/O malignant neoplasm of colon ICD Codes: Z85.038 - Personal history of other malignant neoplasm of large intestine SNOMED: 162668285 (3) Acute blood loss anemia ICD Codes: D62 - Acute posthemorrhagic anemia SNOMED: 448632661 (4) Episode of generalized weakness ICD Codes: R53.1 - Weakness SNOMED: 91497745 (5) S/P colon resection ICD Codes: Z90.49 - Acquired absence of other specified parts of digestive tract SNOMED: 47605189, 05983370, 20760646, 554382711 Status: stable, progressing Assessment/Plan - Admit to obs - patient refusing GI consult. States that he only wants to be seen by his GI, Dr. Turner, as outpatient - transfuse 2 units pRBC - monitor CBC q8hr - IVF - resume home FeSO4 - IV PPi BID - patient refusing to stay overnight to monitor serial CBC. requesting to leave AMA. patient has capacity to make his own judgement, AAO x 3. Explained risks of leaving AMA including possible acute GI hemorrhage, etc. However, patient still requesting to leave AMA. DVT Prophylaxis: SCD Code Status: Full Hospital Classification Declaration: Based on this initial evaluation, and depending on the patient's clinical course, I anticipate that this patient will require hospitalization for 1-2 days for serial CBC monitoring and GI bleed and close respiratory/hemodynamic monitoring. Disposition: Once the patient is stable to leave the hospital, I anticipate the patient will likely be discharged to the following environment: home with I spent 72 minutes on this patient's case, and 38 minutes were dedicated to counseling and/or care coordination. Discussed with patient/family, nursing staff, SW/CM, regarding clinical status, treatment course, and disposition planning. Time of note may not reflect time of encounter. Case was d/w Dr. Burks, who agreed to plan of care. Marifer Monroy NP Aug 10, 2017 16:22
[2017-08-10] MEDS ORDERED: NS 275ml ONE (16:59)
[2017-08-10] MEDS ORDERED: Tubing IV Blood Pump IV ONE (16:59)
[2017-08-10 17:48] LABS: BASOPHILS % (AUTO) 1.6 % (0.0-2.0); EOSINOPHILS % (AUTO) 9.8 % (0.0-3.0); HEMATOCRIT 30.4 % (42.0-52.0); HEMOGLOBIN 9.4 G/DL (14.2-18.0); LYMPHOCYTES % (AUTO) 17.8 % (20.0-45.0); MEAN CORPUSCULAR VOLUME 76 FL (80-99); MONOCYTES % (AUTO) 5.2 % (1.0-10.0); NEUTROPHILS % (AUTO) 65.6 % (45.0-75.0); PLATELET COUNT 427 K/UL (150-450); RED CELL DISTRIBUTION WIDTH 16.9 % (11.6-14.8); WHITE BLOOD COUNT 9.4 K/UL (4.8-10.8)
--- NOTE | 2017-08-12 11:55 | Discharge Summary ---
Discharge Summary Discharge Summary _ DATE OF ADMISSION: 08/10/2017 DATE OF DISCHARGE: 08/10/2017. Patient signed against medical advice REASON FOR ADMISSION: 66 years old male with past medical history of colon cancer, status post colon resection with anastomosis, anemia, presented for dizziness, and pale appearance. Patient had recent EGD 2 days prior to visit of emergency department. EGD was done by GI specialist Dr. Turner which showed duodenal bleeding. Patient reported that he was not treated at that time, since it was difficult procedure. Patient was rescheduled for EGD with clipping in 10 days. Patient presented with the dizziness, pale appearance and generalized weakness. Patient denied any hematochezia ,hematemesis or melena. Patient denied chest pain, shortness of breath ,nausea ,vomiting. Upon evaluation stable vital signs Hemoglobin 7.7, hematocrit 26.2. Patient was ordered to be transfused with 2 units of packed red blood cells. Patient admitted with diagnosis of acute blood loss anemia, duodenal hemorrhage , history of malignant neoplasm of colon, status post colon resection , episode of generalized weakness HOSPITAL COURSE: Patient admitted. Patient refused GI consultation. He stated that he only wanted to be seen by his GI doctor Dr. Turner as outpatient for GI procedure already scheduled.. Patient undergone transfusion of 2 units of packed red blood cells. Serial CBC were ordered. Hemoglobin and hematocrit trended up after transfusion, with hemoglobin up to 9.4 and hematocrit up to 30.4 respectively. Patient was on IV hydration. Iron supplement resumed. Patient was on intravenous PPI twice a day. Patient refused to stay overnight and and requested to leave AGAINST MEDICAL ADVICE. Patient had capacity to make his own decision based on sound judgment ; he was awake, alert ,oriented 3. The risks and consequences of signing AGAINST MEDICAL ADVICE were discussed with the patient; patient verbalized understanding, signed the form and left FINAL DIAGNOSES: Acute blood loss anemia ( s/p 2 u PRBC) History of malignant neoplasm of colon Status post colon resection Duodenal hemorrhage Episode of generalized weakness I have been assigned to dictate discharge summary for this account. I was not involved in the patient's management. Ryanne Alex NP Aug 12, 2017 11:55
== END 2017-08-10 17:00 | disposition left against medical advice (07) | DRG 378 ==
LOC: EMR 00:43 → 4W 02:15 → EDBEDREQ 02:56
PROC: 30233N1 Transfusion of Nonautologous Red Blood Cells into Peripheral Vein, Percutaneous Approach (ICD-10-PCS; principal; 2017-08-10)
DX: K92.2 Gastrointestinal hemorrhage, unspecified (principal); D62 Acute posthemorrhagic anemia; Z85.038 Personal history of other malignant neoplasm of large intestine; Z90.49 Acquired absence of other specified parts of digestive tract; R53.1 Weakness
CPT/HCPCS: 36415; 80053; 85007; 85025; 85610; 85730; 86850; 86900; 86901; 86920; 87081; 96360; 99284